=== PATIENT | male | born 1970 | race Caucasian/White ===

== ENCOUNTER 2020-01-22 17:49 | Outpatient (CLI) | payer OTHER, SELFPAY ==
[2020-01-22 18:00] LABS: Basophils Absolute Auto 0.04 K/mm3 (0.00-0.10); Basophils Percent Auto 0.4 % (0.0-1.0); Eosinophils Absolute Auto 0.27 K/mm3 (0.02-0.50); Eosinophils Percent Auto 2.9 % (1.0-6.0); Hematocrit 47.1 % (40.0-54.0); Hemoglobin 16.6 g/dL (14.0-18.0); Immature Granulocyte Absolute 0.03 K/mm3 (0.00-0.00); Immature Granulocyte Percent A 0.3 % (0.0-0.0); Lymphocytes Absolute Auto 1.83 K/mm3 (1.10-4.50); Mean Corpuscular HGB Conc 35.2 g/dL (32.0-36.0); Mean Corpuscular Hemoglobin 31.4 pg (27.0-31.0); Mean Corpuscular Volume 89.2 fL (78.0-102.0); Mean Platelet Volume 8.4 fl (8.7-11.0); Monocytes Absolute Auto 0.93 K/mm3 (0.10-0.90); Monocytes Percent Auto 10.1 % (2.0-11.0); Neutrophils Absolute Auto 6.1 K/mm3 (1.7-7.2); Neutrophils Percent Auto 66.3 % (50.0-70.0); Platelet Count Result 226 K/mm3 (150-420); Red Blood Count 5.28 M/mm3 (4.70-6.10); Red Cell Distribution Width 12.3 % (11.6-14.4); White Blood Count 9.2 K/mm3 (4.8-10.8)
[2020-01-22 19:22] LABS: Alanine Aminotransferase 39 U/L (16-63); Albumin Level 4.3 g/dL (3.4-5.0); Alkaline Phosphatase 75 U/L (46-116); Anion Gap 10 mmol/L (8-16); Aspartate Amino Transferase 22 U/L (15-37); Bilirubin,Total 0.4 mg/dL (0.00-1.00); Blood Urea Nitrogen 14 mg/dL (7-18); Calcium 8.9 mg/dL (8.5-10.1); Carbon Dioxide 25 mmol/L (21-32); Chloride 104 mmol/L (98-108); Cholesterol 168 mg/dL (0-200); Estimated Glomerular Filt Rate > 60; Glucose 112 mg/dL (70-99); HDL Direct 38 mg/dL (40-60); LDL Cholesterol Calculated 113 mg/dL (<130); Osmolality Calculated 289 mOsm/kg (285-295); Potassium 3.9 mmol/L (3.5-5.1); Sodium 139 mmol/L (136-145); Total Protein 7.4 g/dL (6.4-8.2); Triglycerides 86 mg/dL (0-150)
== END 2020-01-22 17:50 | disposition home or self-care (01) ==
PROVIDERS: PCP Family Medicine; Visit Provider Family Medicine
DX: Z00.00 Encounter for general adult medical examination without abnormal findings (principal); Z13.220 Encounter for screening for lipoid disorders
CPT/HCPCS: 36415; 80053; 80061; 85025

== ENCOUNTER 2020-08-06 08:12 | Outpatient (CLI) | payer OTHER, SELFPAY ==
--- NOTE | ~2020-08-06 | CT_ITS ---
EXAMINATION: CT facial bones w con EXAM DATE: 08/06/2020 08:56 INDICATION: J34.1 - Cyst and mucocele of nose and nasal sinus facial lump over L maxillary since 2010 after sinus infection. TECHNIQUE: Spiral CT of the facial bones was acquired in the axial plane following intravenous inject ion of 75 mL Omnipaque 350. Coronal reformatted images were also reviewed. The dose-length product (DLP) for this examination was 339.32 mGy-cm. The exposure was tailored according to patient size, a nd iterative reconstruction (ASIR) was used as additional dose reduction technique. There is no prio r study for comparison. FINDINGS: There is a 1.5 cm cystic mass in the subcutaneous fat anterior to the left maxillary sinus. This has a thin wall without evidence of thickening. No pressure erosion of the underlying anterior maxillary sinus wall. Appearance is most consistent with a sebaceous cyst. Globes, orbits, extraocula r muscles are unremarkable. There are dental cavities. There are no displaced acute nasal bone fractu res. The mandible, sinuses and orbits are intact. Mild to moderate rightward nasal septal deviation. The visualized sinuses and mastoid air cells are well aerated. IMPRESSION: Subcutaneous cystic mass, appearance most consistent with sebaceous cyst. Reviewed, dictated and finalized at location A.
== END 2020-08-06 08:13 | disposition home or self-care (01) ==
LOC: CHSIMG 08:15
PROVIDERS: PCP Family Medicine; Visit Provider Family Medicine
DX: J34.1 Cyst and mucocele of nose and nasal sinus (principal)
CPT/HCPCS: 70487; Q9967

== ENCOUNTER → 2020-08-30 02:46 | Outpatient (CLI) | payer OTHER, SELFPAY ==
[2020-08-30 19:42] LABS: SARS-CoV-2 RNA PCR Negative
== END ==
PROVIDERS: PCP Family Medicine; Visit Provider Otolaryngology
DX: Z01.812 Encounter for preprocedural laboratory examination (principal); Z20.822 Contact with and (suspected) exposure to COVID-19
CPT/HCPCS: C9803; U0003; U0005

== ENCOUNTER 2020-09-02 00:35 | Day surgery (SDC) | payer OTHER, SELFPAY ==
[2020-08-17 11:13] VITALS: BMI 28.5
--- NOTE | 2020-08-30 07:06 | PM.HPGS ---
History of Present Illness History of Present Illness Consent: Risks, benefits, and alternatives have been discussed and questions answered. Patient agrees to proceed with procedure. Chief complaint: left naslobial cyst Narrative: Sacha Mak is a 49 year old male with a large left nasal labial cyst Review of Systems Review of Systems: All systems reviewed & are unremarkable except as noted in HPI and below PMFSH Past Medical History Medical History Erectile dysfunction Nicotine dependence, cigarettes, uncomplicated Obesity (BMI 30-39.9) Surgical History Surgical History H/O knee surgery Family History Family History Sister Family history of type 2 diabetes mellitus Social History Social History Smoking packs per day: 0.5 Smoking cigarettes per day: 10.0 Years smoked: 20 Smoking pack-years: 10.00 Smoking status: Current every day smoker Alcohol intake: current Substance use: never Gender identity (if verbalized by the patient): Male Spiritual care concerns: No Meds Home Medications and Allergies Home Medications Medication Instructions Recorded Confirmed Type sildenafil 50 mg tablet 50 mg PO DAILY PRN #10 tablet 05/27/20 08/17/20 Rx cephalexin 500 mg capsule 500 mg PO Q12H #20 cap 08/26/20 Rx Allergies Allergy/AdvReac Type Severity Reaction Status Date / Time codeine AdvReac Mild Rash Verified 08/17/20 11:15 Exam Narrative: Exam Narrative: chest clear heart without murmurs abdomen is soft extremities negative large 2.5 cm left nasal labial cyst
--- NOTE | 2020-08-30 07:08 | PM.HPGS ---
History of Present Illness History of Present Illness Consent: Risks, benefits, and alternatives have been discussed and questions answered. Patient agrees to proceed with procedure. Chief complaint: left naslobial cyst Narrative: Sacha Mak is a 49 year old male [facility] Past Medical History Medical History Erectile dysfunction Nicotine dependence, cigarettes, uncomplicated Obesity (BMI 30-39.9) Surgical History Surgical History H/O knee surgery Family History Family History Sister Family history of type 2 diabetes mellitus Social History Social History Smoking packs per day: 0.5 Smoking cigarettes per day: 10.0 Years smoked: 20 Smoking pack-years: 10.00 Smoking status: Current every day smoker Alcohol intake: current Substance use: never Gender identity (if verbalized by the patient): Male Spiritual care concerns: No Meds Home Medications and Allergies Home Medications Medication Instructions Recorded Confirmed Type sildenafil 50 mg tablet 50 mg PO DAILY PRN #10 tablet 05/27/20 08/17/20 Rx cephalexin 500 mg capsule 500 mg PO Q12H #20 cap 08/26/20 Rx Allergies Allergy/AdvReac Type Severity Reaction Status Date / Time codeine AdvReac Mild Rash Verified 08/17/20 11:15 Assessment and Plan Additional Plan plan is excision left nasal labial cyst
--- NOTE | 2020-09-02 06:04 | WPDHPUPDATE1 ---
History and Physical Update Update Date/Time: 09/02/20 06:04 History and Physical has been reviewed, including an updated exam of the patient. There are NO changes in the patient's condition. Risks, benefits, and alternatives have been discussed and questions answered. Patient agrees to proceed with procedure.
[2020-09-02 08:03] VITALS: BP 141/100; PULSE 74; RESP 18; TEMP 36.9; O2SAT 99
[2020-09-02 08:44] VITALS: BP 147/93; PULSE 65; RESP 20; O2SAT 95
[2020-09-02 08:54] VITALS: BP 152/102; PULSE 76; RESP 20; O2SAT 95
[2020-09-02] MEDS: SODIUM BICARBONATE 8.4% 50 MEQ/50 ML SYRINGE XX (08:56)
[2020-09-02] MEDS: NEOMYCIN/POLYMYXIN/BACITRACIN OINTMENT 15 GM TUBE 1 APPLIC TOPICAL (09:02)
[2020-09-02 09:04] VITALS: BP 147/96; PULSE 81; RESP 20; O2SAT 93
--- NOTE | 2020-09-02 09:10 | PM.PROC ---
Procedure Note - Detailed Date of procedure: 09/02/20 Pre-op diagnosis: left naslobial cyst Post-op diagnosis: same Procedure performed: Excision left facial nasal labial cyst Description of procedure: Patient was prepped and draped fashion general anesthetic local anesthesia 1% xylocaine 1-1000 epinephrine an elliptical incision made around the large nasal labial cyst that had ruptured dissection carried down the cyst wall went down to the bone hemostasis was obtained with bipolar electrocautery and closed in layers of 4 0 Vicryl and 5 0 nylon Anesthesia: local Surgeon: Naeem Rao MD Estimated blood loss (mL): 10 Drains: Yes Packing: No Pathology: yes Complications: No immediate complications Condition: stable Disposition: same day
[2020-09-02 09:17] VITALS: BP 138/78; PULSE 78; RESP 18; TEMP 36.9; O2SAT 100
== END 2020-09-02 09:35 | disposition home or self-care (01) ==
PROVIDERS: PCP Family Medicine; Visit Provider Otolaryngology
PROC: (CPT 11443; principal; 2020-09-02 08:30)
DX: L72.0 Epidermal cyst (principal); F17.210 Nicotine dependence, cigarettes, uncomplicated; E66.9 Obesity, unspecified; Z68.29 Body mass index [BMI] 29.0-29.9, adult
CPT/HCPCS: 11443; 12052; 88304; 88305; A9270; C9803; U0003; U0005

== ENCOUNTER 2020-10-13 06:58 | Outpatient (CLI) | payer OTHER, SELFPAY ==
--- NOTE | ~2020-10-13 | MR_ITS ---
EXAMINATION: MR knee LT wo con DATE: 10/13/2020 12:01 INDICATION: Left knee pain TECHNIQUE: Magnetic resonance imaging (MRI) of the left knee was performed without intravenous contra st. Sequences included coronal PD-weighted FSE, coronal PD-weighted FS FSE, sagittal T2-weighted FSE , sagittal PD-weighted FS FSE and axial PD weighted fat saturated FSE. COMPARISON: None. FINDINGS: Medial compartment: Mild medial extrusion of the medial meniscal body. There is a complex tear of the posterior horn. Par tial-thickness cartilage loss with chondral surface regularity along the anterior to central weightbe aring medial femoral condyle. There is a delaminating chondral flap tear along the lateral aspect of the central weightbearing medial femoral condyle with linear fluid signal along the bone chondral int erface extending laterally from a more medial chondral fissure. There is mild irregularity to the art icular cortex and mild subarticular edema along the lateral aspect of the central weightbearing media l femoral condyle. Additional mild subarticular edema along the medial rim of the medial tibial plate au. Lateral compartment: Lateral meniscus is normal. Articular cartilage is normal. Patellofemoral compartment: Partial-thickness chondral fissuring without degenerative subchondral changes along the inferior aspe ct of the junction of the medial patellar facet and a small odd facet. Similar partial-thickness victor manuel dral fissuring without degenerative subchondral changes at the inferior aspect of the medial trochlea and trochlear groove. Ligaments and tendons: Anterior and posterior cruciate ligaments are normal. The medial collateral ligament and fibular mai ateral ligament complex are normal. The extensor mechanism is normal. The visualized medial and later al hamstring tendons as well as the iliotibial band are normal. Fluid: Small left knee joint effusion with mild synovitis. No loose osteochondral bodies identified. Moderat e-sized Prater's cyst. Additional small deeper ganglion cyst extending cephalad along the anterior mar gin of the semimembranosus muscle. Osseous/other: Bone alignment is normal. No fracture or pathologic marrow replacing process. IMPRESSION: 1. Complex tear of the posterior horn of the medial meniscus. 2. 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 2. Small left knee joint effusion and moderate-sized Prater's cyst. Reviewed, dictated and finalized at location A. IMPRESSION: 1. Complex tear of the posterior horn of the medial meniscus. 2. Mild to moderate medial compartment osteoarthritis with extensive moderate t o high-grade chondromalacia and mild patellofemoral osteoarthritis with smaller regions of moderate grade chondromalacia. 2. Small left knee joint effusion and moderate-sized Prater's cyst.
== END 2020-10-13 06:59 | disposition home or self-care (01) ==
LOC: CHSIMG 06:59
PROVIDERS: PCP Family Medicine; Visit Provider Internal Medicine
DX: M25.562 Pain in left knee (principal); M17.12 Unilateral primary osteoarthritis, left knee
CPT/HCPCS: 73721

== ENCOUNTER → 2021-01-08 03:31 | Outpatient (CLI) | payer OTHER, SELFPAY ==
[2021-01-09 01:36] LABS: SARS-CoV-2 RNA PCR Negative
== END ==
PROVIDERS: PCP Family Medicine; Visit Provider Otolaryngology
DX: Z01.812 Encounter for preprocedural laboratory examination (principal); Z20.822 Contact with and (suspected) exposure to COVID-19
CPT/HCPCS: C9803; U0003; U0005

== ENCOUNTER → 2021-01-11 00:49 | Day surgery (SDC) | payer OTHER, SELFPAY ==
[2021-01-06 18:00] VITALS: BMI 28.0
--- NOTE | 2021-01-07 10:29 | PM.HPGS ---
History of Present Illness History of Present Illness Consent: Risks, benefits, and alternatives have been discussed and questions answered. Patient agrees to proceed with procedure. Chief complaint: forehead cyst Narrative: Sacha Mak is a 50 year old male with the cyst more than likely sebaceous cys Review of Systems Review of Systems: All systems reviewed & are unremarkable except as noted in HPI and below PMFSH Past Medical History Medical History (Updated 12/15/20 @ 08:16 by Darline Flores) Erectile dysfunction Nicotine dependence, cigarettes, uncomplicated Obesity (BMI 30-39.9) Surgical History Surgical History H/O knee surgery Family History Family History Sister Family history of type 2 diabetes mellitus Social History Social History Smoking packs per day: 0.5 Smoking cigarettes per day: 10.0 Years smoked: 20 Smoking pack-years: 10.00 Smoking status: Current some day smoker Tobacco type: cigarettes Second hand tobacco smoke exposure: No Alcohol intake: current Drinks per week: 6 Alcohol use details: beer Substance use: never Substance use type: does not use Gender identity (if verbalized by the patient): Male Spiritual care concerns: No Meds Home Medications and Allergies Home Medications Medication Instructions Recorded Confirmed Type multivitamin [Daily Vitamin] 1 tablet PO DAILY 01/06/21 01/06/21 History Allergies Allergy/AdvReac Type Severity Reaction Status Date / Time codeine Allergy Mild Rash Verified 01/06/21 17:54 Exam Narrative: chest clear heart without murmurs abdomen soft 2 2.5 cm cyst above the left brow Assessment and Plan Additional Plan plan excision cyst left breast
--- NOTE | 2021-01-11 05:56 | WPDHPUPDATE1 ---
History and Physical Update Update Date/Time: 01/11/21 05:56 History and Physical has been reviewed, including an updated exam of the patient. There are NO changes in the patient's condition. Risks, benefits, and alternatives have been discussed and questions answered. Patient agrees to proceed with procedure.
[2021-01-11 08:19] VITALS: BP 164/98; PULSE 90; RESP 18; TEMP 36.9; O2SAT 96
== END | disposition home or self-care (01) ==
PROVIDERS: PCP Family Medicine; Visit Provider Otolaryngology
DX: L72.8 Other follicular cysts of the skin and subcutaneous tissue (principal); Z53.9 Procedure and treatment not carried out, unspecified reason
CPT/HCPCS: 99211; G0463